=== PATIENT | male | born 1955 | race Caucasian/White ===

== ENCOUNTER 2021-03-08 09:08 | Inpatient (IN) | payer MEDICARE, OTHER ==
[2021-03-08 09:51] VITALS: BMI 19.0
[2021-03-08] MEDS ORDERED: MAGNESIUM CITRATE 300 ML BOTTLE PO PRN (10:24)
[2021-03-08] MEDS ORDERED: LORazepam 1 MG TABLET PO PRN (10:24)
[2021-03-08] MEDS ORDERED: NICOTINE POLACRILEX 2 MG GUM BUC PRN (10:24)
[2021-03-08] MEDS ORDERED: MENTHOL/PHENOL 1 EACH UD MM PRN (10:24)
[2021-03-08] MEDS ORDERED: BISMUTH SUBSALICYLATE 524 MG/30 ML PO PRN (10:24)
[2021-03-08] MEDS ORDERED: MAGNESIUM HYDROX 2400MG/30ML ORAL SUSPENSION 30 ML CUP PO PRN (10:24)
[2021-03-08] MEDS ORDERED: ONDANSETRON *ODT* 4 MG TABLET SL PRN (10:24)
[2021-03-08] MEDS ORDERED: ACETAMINOPHEN 325 MG TABLET (FP) PO PRN ×2 (10:24)
[2021-03-08] MEDS ORDERED: MAG HYDROX/AL HYDROX/SIMETH 30 ML UNIT-DOSE CUP PO PRN (10:24)
[2021-03-08] MEDS: NICOTINE 7 MG/24 HOURS TOPICAL PATCH TD SCH (13:09)
[2021-03-08] MEDS: hydrOXYzine PAMOATE 25 MG CAPSULE (FP) PO SCH ×3 (13:09→22:18)
[2021-03-08] MEDS: PRENATAL VITAMINS W/ FOLIC ACID TABLET (FP) PO SCH (13:10)
[2021-03-08 13:37] LABS: HEMATOCRIT 37.1 % (35.4-49); MCH 27.3 pg (25.7-33.7); MCHC 32.3 g/dl (32.0-35.9); MEAN CELL VOLUME 84.4 fl (80-96); MEAN PLT VOLUME 8.4 fl (7.5-11.1); PLATELET COUNT 266 K/MM3 (134-434); RBC 4.39 M/mm3 (4.00-5.60); RDW 15.5 % (11.9-15.9); WHITE BLOOD COUNT 13.1 K/mm3 (4.0-10.0)
[2021-03-08 13:44] LABS: CALCIUM 8.3 mg/dL (8.5-10.1)
[2021-03-08 13:46] LABS: ALBUMIN 3.3 g/dl (3.4-5.0); BLOOD UREA NITROGEN 25.7 mg/dL (7-18)
[2021-03-08 13:49] LABS: BILIRUBIN,TOTAL 0.8 mg/dL (0.2-1); CREATININE 0.7 mg/dL (0.55-1.3)
[2021-03-08] MEDS: ALBUTEROL SO4 HFA INHALER IH PRN (14:12)
[2021-03-08] MEDS: METHOCARBAMOL 500 MG TABLET PO PRN (15:03)
[2021-03-08] MEDS: LORazepam 2 MG TABLET PO SCH ×2 (17:33→22:18)
[2021-03-08] MEDS: IBUPROFEN 400 MG TABLET (FP) PO PRN (18:55)
[2021-03-08] MEDS: MELATONIN 5 MG TABLETS PO SCH (22:18)
[2021-03-08] MEDS: THIAMINE HCL 100 MG TABLET (FP) PO SCH (22:18)
[2021-03-09] MEDS ORDERED: METHADONE HCL 10 MG TABLET ONE ×2 (04:08→11:31)
[2021-03-09] MEDS ORDERED: METHADONE HCL 5 MG TABLET ONE ×2 (04:08→11:31)
[2021-03-09] MEDS ORDERED: METHADONE HCL 40 MG DISPERSABLE TABLET ONE ×2 (04:08→11:31)
[2021-03-09] MEDS ORDERED: METHADONE HCL 10 MG TABLET PO SCH (06:00)
[2021-03-09] MEDS: METHADONE 40 MG, METHADONE 30 MG, METHADONE 5 MG PO SCH (06:17)
[2021-03-09] MEDS: LORazepam 2 MG TABLET PO SCH ×4 (06:17→22:16)
[2021-03-09] MEDS: hydrOXYzine PAMOATE 25 MG CAPSULE (FP) PO SCH ×5 (06:17→22:17)
[2021-03-09] MEDS ORDERED: metFORMIN HCL 500 MG TABLET (FP) PO SCH (07:00)
[2021-03-09] MEDS: IBUPROFEN 400 MG TABLET (FP) PO PRN (08:35)
[2021-03-09] MEDS: PRENATAL VITAMINS W/ FOLIC ACID TABLET (FP) PO SCH (10:33)
[2021-03-09] MEDS: NICOTINE 7 MG/24 HOURS TOPICAL PATCH TD SCH (10:33)
[2021-03-09] MEDS: METHOCARBAMOL 500 MG TABLET PO PRN ×2 (10:34→22:17)
[2021-03-09] MEDS ORDERED: METHADONE HCL 10 MG TABLET PO ONE ×2 (10:57→11:12)
[2021-03-09] MEDS ORDERED: METHADONE 40 MG, METHADONE 30 MG, METHADONE 5 MG PO ONE ×2 (11:15)
[2021-03-09] MEDS: metFORMIN HCL 500 MG TABLET (FP) PO SCH (18:21)
[2021-03-09] MEDS: MELATONIN 5 MG TABLETS PO SCH (22:17)
[2021-03-09] MEDS: THIAMINE HCL 100 MG TABLET (FP) PO SCH (22:17)
[2021-03-10] MEDS ORDERED: METHADONE HCL 10 MG TABLET ONE (04:33)
[2021-03-10] MEDS ORDERED: METHADONE HCL 40 MG DISPERSABLE TABLET ONE (04:33)
[2021-03-10] MEDS ORDERED: METHADONE HCL 5 MG TABLET ONE (04:34)
[2021-03-10] MEDS: LORazepam 1 MG TABLET PO SCH ×4 (07:07→22:20)
[2021-03-10] MEDS: metFORMIN HCL 500 MG TABLET (FP) PO SCH ×2 (07:08→16:44)
[2021-03-10] MEDS: METHADONE 40 MG, METHADONE 30 MG, METHADONE 5 MG PO SCH (07:08)
[2021-03-10] MEDS: hydrOXYzine PAMOATE 25 MG CAPSULE (FP) PO SCH ×5 (07:08→22:20)
[2021-03-10] MEDS: PRENATAL VITAMINS W/ FOLIC ACID TABLET (FP) PO SCH (10:14)
[2021-03-10] MEDS: NICOTINE 7 MG/24 HOURS TOPICAL PATCH TD SCH (10:15)
[2021-03-10 17:17] LABS: BASO % 0.8 % (0-2.0); HEMATOCRIT 33.1 % (35.4-49); HEMOGLOBIN 10.9 GM/dL (11.7-16.9); LYMPH % 30.3 % (8-40); MCH 27.5 pg (25.7-33.7); MCHC 32.9 g/dl (32.0-35.9); MEAN CELL VOLUME 83.7 fl (80-96); MEAN PLT VOLUME 8.8 fl (7.5-11.1); MONO % 9.1 % (3.8-10.2); NEUT % 55.8 % (42.8-82.8); PLATELET COUNT 244 K/MM3 (134-434); RBC 3.96 M/mm3 (4.00-5.60); RDW 15.5 % (11.9-15.9); WHITE BLOOD COUNT 12.2 K/mm3 (4.0-10.0)
[2021-03-10 20:32] LABS: ANISOCYTOSIS 1+; MACROCYTOSIS 0; PLATELET ESTIMATE NORMAL
[2021-03-10] MEDS: MELATONIN 5 MG TABLETS PO SCH (22:19)
[2021-03-10] MEDS: THIAMINE HCL 100 MG TABLET (FP) PO SCH (22:19)
[2021-03-11] MEDS ORDERED: LORazepam 0.5 MG TABLET PO PRN
[2021-03-11] MEDS ORDERED: METHADONE HCL 5 MG TABLET ONE (04:37)
[2021-03-11] MEDS ORDERED: METHADONE HCL 40 MG DISPERSABLE TABLET ONE (04:37)
[2021-03-11] MEDS ORDERED: METHADONE HCL 10 MG TABLET ONE (04:37)
[2021-03-11] MEDS: METHADONE 40 MG, METHADONE 30 MG, METHADONE 5 MG PO SCH (05:57)
[2021-03-11] MEDS: hydrOXYzine PAMOATE 25 MG CAPSULE (FP) PO SCH ×5 (05:57→22:17)
[2021-03-11] MEDS: LORazepam 0.5 MG TABLET PO SCH ×4 (06:00→22:18)
[2021-03-11] MEDS: metFORMIN HCL 500 MG TABLET (FP) PO SCH ×2 (06:00→16:42)
[2021-03-11 06:08] LABS: SARS-CoV-2 NAA Not Detected (Not Detected)
[2021-03-11] MEDS ORDERED: COVID-19 VAC,AD26(JANSSEN)/PF 0.5 ML IM ONE (09:00)
[2021-03-11] MEDS: NICOTINE 7 MG/24 HOURS TOPICAL PATCH TD SCH (10:27)
[2021-03-11] MEDS: PRENATAL VITAMINS W/ FOLIC ACID TABLET (FP) PO SCH (10:27)
[2021-03-11] MEDS: THIAMINE HCL 100 MG TABLET (FP) PO SCH (22:17)
[2021-03-11] MEDS: MELATONIN 5 MG TABLETS PO SCH (22:17)
[2021-03-12] MEDS ORDERED: METHADONE HCL 40 MG DISPERSABLE TABLET ONE (04:30)
[2021-03-12] MEDS ORDERED: METHADONE HCL 10 MG TABLET ONE (04:30)
[2021-03-12] MEDS ORDERED: METHADONE HCL 5 MG TABLET ONE (04:31)
[2021-03-12] MEDS ORDERED: LORazepam 0.5 MG TABLET PO ONE (05:00)
[2021-03-12] MEDS: hydrOXYzine PAMOATE 25 MG CAPSULE (FP) PO SCH ×6 (05:22→22:50)
[2021-03-12] MEDS: METHADONE 40 MG, METHADONE 30 MG, METHADONE 5 MG PO SCH (05:22)
[2021-03-12] MEDS: metFORMIN HCL 500 MG TABLET (FP) PO SCH ×2 (07:20→18:29)
[2021-03-12] MEDS: NICOTINE 7 MG/24 HOURS TOPICAL PATCH TD SCH (11:02)
[2021-03-12] MEDS: PRENATAL VITAMINS W/ FOLIC ACID TABLET (FP) PO SCH (11:02)
[2021-03-12] MEDS: IBUPROFEN 400 MG TABLET (FP) PO PRN (11:07)
[2021-03-12] MEDS: MELATONIN 5 MG TABLETS PO SCH (22:50)
[2021-03-12] MEDS: ALBUTEROL SO4 HFA INHALER IH PRN (22:50)
[2021-03-12] MEDS: THIAMINE HCL 100 MG TABLET (FP) PO SCH (22:50)
[2021-03-13] MEDS ORDERED: METHADONE HCL 10 MG TABLET ONE (04:41)
[2021-03-13] MEDS ORDERED: METHADONE HCL 5 MG TABLET ONE (04:42)
[2021-03-13] MEDS ORDERED: METHADONE HCL 40 MG DISPERSABLE TABLET ONE (04:42)
[2021-03-13] MEDS: hydrOXYzine PAMOATE 25 MG CAPSULE (FP) PO SCH ×6 (05:29→22:04)
[2021-03-13] MEDS: METHADONE 40 MG, METHADONE 30 MG, METHADONE 5 MG PO SCH (05:30)
[2021-03-13] MEDS: metFORMIN HCL 500 MG TABLET (FP) PO SCH ×2 (08:23→17:37)
[2021-03-13] MEDS: PRENATAL VITAMINS W/ FOLIC ACID TABLET (FP) PO SCH (09:53)
[2021-03-13] MEDS: NICOTINE 7 MG/24 HOURS TOPICAL PATCH TD SCH (09:53)
[2021-03-13] MEDS: ALBUTEROL SO4 HFA INHALER IH PRN (09:54)
[2021-03-13] MEDS ORDERED: ALBUTEROL SO4 2.5/IPRATROPIUM 0.5 INH SOL 3 ML VIAL.NEB. NEB PRN (15:17)
[2021-03-13] MEDS: MELATONIN 5 MG TABLETS PO SCH (22:04)
[2021-03-13] MEDS: THIAMINE HCL 100 MG TABLET (FP) PO SCH (22:05)
[2021-03-14] MEDS ORDERED: METHADONE HCL 10 MG TABLET ONE (04:53)
[2021-03-14] MEDS ORDERED: METHADONE HCL 40 MG DISPERSABLE TABLET ONE (04:53)
[2021-03-14] MEDS ORDERED: METHADONE HCL 5 MG TABLET ONE (04:53)
[2021-03-14] MEDS: hydrOXYzine PAMOATE 25 MG CAPSULE (FP) PO SCH (05:27)
[2021-03-14] MEDS: METHADONE 40 MG, METHADONE 30 MG, METHADONE 5 MG PO SCH (05:28)
[2021-03-14] MEDS: metFORMIN HCL 500 MG TABLET (FP) PO SCH (06:55)
[2021-03-14 09:21] VITALS: BP 131/74; PULSE 90; TEMP 97.1
[2021-03-14] MEDS: ALBUTEROL SO4 HFA INHALER IH PRN (09:28)
== END 2021-03-14 09:45 | disposition home or self-care (01) | DRG 897 ==
LOC: YASAS 09:08 → Y3N 11:48
PROVIDERS: ADMIT Allergy & Immunology; ATTEND Allergy & Immunology
PROC: HZ2ZZZZ Detoxification Services for Substance Abuse Treatment (ICD-10-PCS; principal; 2021-03-08)
DX: F10.230 Alcohol dependence with withdrawal, uncomplicated (principal); F11.20 Opioid dependence, uncomplicated; F14.20 Cocaine dependence, uncomplicated; F17.210 Nicotine dependence, cigarettes, uncomplicated; D72.829 Elevated white blood cell count, unspecified; F32.9 Major depressive disorder, single episode, unspecified; E11.9 Type 2 diabetes mellitus without complications; Z79.84 Long term (current) use of oral hypoglycemic drugs; I10 Essential (primary) hypertension; M17.11 Unilateral primary osteoarthritis, right knee; H54.62 Unqualified visual loss, left eye, normal vision right eye; H40.9 Unspecified glaucoma; J44.9 Chronic obstructive pulmonary disease, unspecified; R79.89 Other specified abnormal findings of blood chemistry
CPT/HCPCS: 0031A; 36415; 71045-TC-FY; 80053; 82962; 85025; 85027; 86780; 91303; 93005; 93010; C9803; U0003; U0005

== ENCOUNTER 2022-03-06 16:19 | Inpatient (IN) | payer OTHER ==
[2022-03-06 17:28] VITALS: BMI 19.8
[2022-03-06] MEDS ORDERED: LORazepam 1 MG TABLET PO PRN (18:39)
[2022-03-06] MEDS ORDERED: MAGNESIUM HYDROX 2400MG/30ML ORAL SUSPENSION 30 ML CUP PO PRN (18:39)
[2022-03-06] MEDS ORDERED: DICYCLOMINE HCL 10 MG CAPSULE PO PRN (18:39)
[2022-03-06] MEDS ORDERED: NICOTINE 10 MG CARTRIDGE (INHALER) IH PRN (18:39)
[2022-03-06] MEDS ORDERED: ONDANSETRON *ODT* 4 MG TABLET SL PRN (18:39)
[2022-03-06] MEDS ORDERED: BISMUTH SUBSALICYLATE 524 MG/30 ML PO PRN (18:39)
[2022-03-06] MEDS ORDERED: BENZOCAINE/MENTHOL (CHLORASEPTIC ) LOZENGE MM PRN (18:39)
[2022-03-06] MEDS ORDERED: ACETAMINOPHEN 325 MG TABLET (FP) PO PRN ×2 (18:39)
[2022-03-06] MEDS ORDERED: LOPERAMIDE HCL 2 MG CAPSULE PO PRN (18:39)
[2022-03-06] MEDS ORDERED: LORazepam 2 MG TABLET PO ONE (18:39)
[2022-03-06] MEDS ORDERED: MAGNESIUM CITRATE 300 ML BOTTLE PO PRN (18:39)
[2022-03-06] MEDS ORDERED: MAG HYDROX/AL HYDROX/SIMETH 30 ML UNIT-DOSE CUP PO PRN (18:39)
[2022-03-06] MEDS ORDERED: ALBUTEROL SO4 HFA INHALER IH PRN (18:43)
[2022-03-06] MEDS ORDERED: ARTIFICIAL TEARS (POLYVINYL ALCOHOL) OPTH DROPS OU PRN (18:46)
[2022-03-06] MEDS: ATORVASTATIN CA 40 MG TABLET (FP) PO SCH (21:27)
[2022-03-06] MEDS: THIAMINE HCL 100 MG TABLET (FP) PO SCH (21:27)
[2022-03-06] MEDS: NICOTINE 14 MG/24 HOURS TOPICAL PATCH TD SCH (21:27)
[2022-03-06] MEDS: PANTOPRAZOLE 20 MG TABLET PO SCH (21:27)
[2022-03-06] MEDS: ASPIRIN 81 MG CHEWABLE TABLETS PO SCH (21:27)
[2022-03-06] MEDS: MELATONIN 5 MG TABLETS PO SCH (21:28)
[2022-03-06] MEDS: BUDESONIDE/FORMETEROL FUMARATE 80/4.5 mcg INHALER IH SCH (21:28)
[2022-03-06] MEDS: LORazepam 2 MG TABLET PO SCH (22:41)
[2022-03-06] MEDS: METHYL SALICYLATE/MENTHOL OINT 30 GM TUBE TP SCH (23:52)
[2022-03-07] MEDS: LORazepam 2 MG TABLET PO SCH ×4 (05:45→22:17)
[2022-03-07] MEDS ORDERED: methaDONE HCL 10 MG TABLET PO ONE (09:55)
[2022-03-07 10:05] LABS: HEMATOCRIT 30.7 % (35.4-49); HEMOGLOBIN 10.1 GM/dL (11.7-16.9); MCH 29.9 pg (25.7-33.7); MCHC 32.9 g/dl (32.0-35.9); MEAN CELL VOLUME 91.1 fl (80-96); MEAN PLT VOLUME 9.4 fl (7.5-11.1); PLATELET COUNT 139 10^3/uL (134-434); RBC 3.38 M/mm3 (4.00-5.60); RDW 16.8 % (11.9-15.9); WHITE BLOOD COUNT 7.9 K/mm3 (4.0-10.0)
[2022-03-07] MEDS: ASPIRIN 81 MG CHEWABLE TABLETS PO SCH (10:10)
[2022-03-07] MEDS: PRENATAL VITAMINS W/ FOLIC ACID TABLET (FP) PO SCH (10:10)
[2022-03-07] MEDS: PANTOPRAZOLE 20 MG TABLET PO SCH (10:10)
[2022-03-07] MEDS: BUDESONIDE/FORMETEROL FUMARATE 80/4.5 mcg INHALER IH SCH ×2 (10:11→22:17)
[2022-03-07] MEDS: NICOTINE 14 MG/24 HOURS TOPICAL PATCH TD SCH (10:11)
[2022-03-07] MEDS: METHYL SALICYLATE/MENTHOL OINT 30 GM TUBE TP SCH ×3 (10:12→22:17)
[2022-03-07 10:32] LABS: ALBUMIN 2.6 g/dl (3.4-5.0); BLOOD UREA NITROGEN 18.4 mg/dL (7-18); CALCIUM 8.1 mg/dL (8.5-10.1)
[2022-03-07 10:34] LABS: CREATININE 0.7 mg/dL (0.55-1.3)
[2022-03-07 10:35] LABS: BILIRUBIN,TOTAL 2.6 mg/dL (0.2-1); TOT PROT 5.9 g/dl (6.4-8.2)
[2022-03-07] MEDS ORDERED: methaDONE HCL 40 MG DISPERSABLE TABLET ONE (10:51)
[2022-03-07] MEDS ORDERED: methaDONE HCL 10 MG TABLET ONE (10:51)
[2022-03-07 14:09] LABS: SARS-CoV-2 NAA Not Detected (Not Detected)
[2022-03-07] MEDS: THIAMINE HCL 100 MG TABLET (FP) PO SCH (22:16)
[2022-03-07] MEDS: MELATONIN 5 MG TABLETS PO SCH (22:16)
[2022-03-07] MEDS: ATORVASTATIN CA 40 MG TABLET (FP) PO SCH (22:17)
[2022-03-08] MEDS ORDERED: methaDONE HCL 40 MG DISPERSABLE TABLET ONE (04:48)
[2022-03-08] MEDS ORDERED: methaDONE HCL 10 MG TABLET ONE (04:48)
[2022-03-08] MEDS ORDERED: LORazepam 1 MG TABLET PO SCH (05:00)
[2022-03-08] MEDS ORDERED: methaDONE HCL 10 MG TABLET PO SCH (06:00)
[2022-03-08] MEDS ORDERED: MAGNESIUM HYDROX 2400MG/30ML ORAL SUSPENSION 30 ML CUP PO ONE (10:00)
[2022-03-08 10:07] LABS: SARS-CoV-2 NAA Not Detected (Not Detected)
[2022-03-08] MEDS: ASPIRIN 81 MG CHEWABLE TABLETS PO SCH (10:31)
[2022-03-08] MEDS: METHYL SALICYLATE/MENTHOL OINT 30 GM TUBE TP SCH ×2 (10:31→22:28)
[2022-03-08] MEDS: PRENATAL VITAMINS W/ FOLIC ACID TABLET (FP) PO SCH (10:31)
[2022-03-08] MEDS: PANTOPRAZOLE 20 MG TABLET PO SCH (10:31)
[2022-03-08] MEDS: NICOTINE 14 MG/24 HOURS TOPICAL PATCH TD SCH (10:32)
[2022-03-08] MEDS: BUDESONIDE/FORMETEROL FUMARATE 80/4.5 mcg INHALER IH SCH ×2 (10:32→22:30)
[2022-03-08] MEDS: LORazepam 0.5 MG TABLET PO SCH ×3 (10:34→23:02)
[2022-03-08] MEDS: MELATONIN 5 MG TABLETS PO SCH (22:30)
[2022-03-08] MEDS: THIAMINE HCL 100 MG TABLET (FP) PO SCH (22:30)
[2022-03-09] MEDS ORDERED: LORazepam 0.5 MG TABLET PO PRN
[2022-03-09] MEDS ORDERED: methaDONE HCL 10 MG TABLET ONE (04:05)
[2022-03-09] MEDS ORDERED: methaDONE HCL 40 MG DISPERSABLE TABLET ONE (04:05)
[2022-03-09] MEDS: LORazepam 0.5 MG TABLET PO SCH ×4 (05:19→22:39)
[2022-03-09] MEDS: PANTOPRAZOLE 20 MG TABLET PO SCH (10:14)
[2022-03-09] MEDS: ASPIRIN 81 MG CHEWABLE TABLETS PO SCH (10:15)
[2022-03-09] MEDS: METHYL SALICYLATE/MENTHOL OINT 30 GM TUBE TP SCH ×2 (10:15→22:36)
[2022-03-09] MEDS: BUDESONIDE/FORMETEROL FUMARATE 80/4.5 mcg INHALER IH SCH ×2 (10:16→22:37)
[2022-03-09] MEDS: PRENATAL VITAMINS W/ FOLIC ACID TABLET (FP) PO SCH (10:16)
[2022-03-09] MEDS: NICOTINE 14 MG/24 HOURS TOPICAL PATCH TD SCH (10:16)
[2022-03-09] MEDS: MELATONIN 5 MG TABLETS PO SCH (22:37)
[2022-03-09] MEDS: THIAMINE HCL 100 MG TABLET (FP) PO SCH (22:37)
[2022-03-10] MEDS ORDERED: methaDONE HCL 10 MG TABLET ONE (04:43)
[2022-03-10] MEDS ORDERED: methaDONE HCL 40 MG DISPERSABLE TABLET ONE (04:44)
[2022-03-10] MEDS ORDERED: LORazepam 0.5 MG TABLET PO ONE (05:00)
[2022-03-10] MEDS: BUDESONIDE/FORMETEROL FUMARATE 80/4.5 mcg INHALER IH SCH (10:24)
[2022-03-10] MEDS: ASPIRIN 81 MG CHEWABLE TABLETS PO SCH (10:24)
[2022-03-10] MEDS: PRENATAL VITAMINS W/ FOLIC ACID TABLET (FP) PO SCH (10:25)
[2022-03-10] MEDS: PANTOPRAZOLE 20 MG TABLET PO SCH (10:25)
[2022-03-10] MEDS: METHYL SALICYLATE/MENTHOL OINT 30 GM TUBE TP SCH (11:14)
[2022-03-10] MEDS: NICOTINE 14 MG/24 HOURS TOPICAL PATCH TD SCH (11:14)
[2022-03-10 12:25] VITALS: BP 137/77; PULSE 97; TEMP 97.9
== END 2022-03-10 12:20 | disposition home or self-care (01) | DRG 897 ==
LOC: YASAS 16:19 → Y6N 20:02
PROVIDERS: ADMIT Allergy & Immunology; ATTEND Surgery
PROC: HZ2ZZZZ Detoxification Services for Substance Abuse Treatment (ICD-10-PCS; principal; 2022-03-06)
DX: F10.230 Alcohol dependence with withdrawal, uncomplicated (principal); F11.20 Opioid dependence, uncomplicated; F14.10 Cocaine abuse, uncomplicated; F17.210 Nicotine dependence, cigarettes, uncomplicated; I25.118 Atherosclerotic heart disease of native coronary artery with other forms of angina pectoris; I10 Essential (primary) hypertension; E11.9 Type 2 diabetes mellitus without complications; H54.62 Unqualified visual loss, left eye, normal vision right eye; M17.11 Unilateral primary osteoarthritis, right knee; R74.01 Elevation of levels of liver transaminase levels; Z99.89 Dependence on other enabling machines and devices
CPT/HCPCS: 36415; 80053; 82962; 85027; 86780; 93005; 93010; C9803-CS; U0003; U0005

== ENCOUNTER 2023-06-11 14:07 | Inpatient (IN) | payer OTHER ==
[2023-06-11] MEDS ORDERED: diazePAM 5 MG TABLET PO PRN (18:33)
[2023-06-11] MEDS ORDERED: IBUPROFEN 400 MG TABLET (FP) PO PRN (18:35)
[2023-06-11] MEDS ORDERED: NALOXONE HCL (KLOXXADO) 8 MG SPRAY NS PRN (18:35)
[2023-06-11] MEDS ORDERED: BENZOCAINE/MENTHOL (CHLORASEPTIC ) LOZENGE MM PRN (18:35)
[2023-06-11] MEDS ORDERED: BENZONATATE 200 MG CAPSULE PO PRN (18:35)
[2023-06-11] MEDS ORDERED: LOPERAMIDE HCL 2 MG CAPSULE PO PRN (18:35)
[2023-06-11] MEDS ORDERED: NALOXONE HCL 0.4 MG/ML VIAL IM PRN (18:35)
[2023-06-11] MEDS ORDERED: BISMUTH SUBSALICYLATE 524 MG/30 ML PO PRN (18:35)
[2023-06-11] MEDS ORDERED: MAGNESIUM HYDROX 2400MG/30ML ORAL SUSPENSION 30 ML CUP PO PRN (18:35)
[2023-06-11] MEDS ORDERED: NICOTINE POLACRILEX 2 MG GUM BUC PRN (18:35)
[2023-06-11] MEDS ORDERED: guaiFENesin 600 MG TABLET.ER (FP) PO PRN (18:35)
[2023-06-11] MEDS ORDERED: MAG HYDROX/AL HYDROX/SIMETH 30 ML UNIT-DOSE CUP PO PRN (18:35)
[2023-06-11] MEDS ORDERED: P-EPHED 60MG/TRIPROLIDI 2.5MG TABLET PO PRN (18:35)
[2023-06-11] MEDS ORDERED: POLYETHYLENE GLYCOL (HEALTHYLAX) 3350 17 GM PACKET PO PRN (18:35)
[2023-06-11] MEDS ORDERED: METOPROLOL TARTRATE 25 MG TABLET (FP) PO ONE (19:00)
[2023-06-11] MEDS ORDERED: METOPROLOL TARTRATE 25 MG TABLET (FP) ONE (19:18)
[2023-06-11] MEDS ORDERED: IBUPROFEN 600 MG TABLET (FP) PO ONE (19:18)
[2023-06-11] MEDS ORDERED: ASPIRIN 81 MG CHEWABLE TABLETS ONE (19:18)
[2023-06-11] MEDS: ASPIRIN 81 MG CHEWABLE TABLETS PO SCH (19:20)
[2023-06-11] MEDS: IBUPROFEN 600 MG TABLET (FP) PO PRN (19:20)
[2023-06-11] MEDS ORDERED: SENNOSIDES 8.6MG TABLET (FP) PO PRN (20:15)
[2023-06-11] MEDS: MOMETASONE FUROATE 220 MCG/IH INHALER IH SCH (22:07)
[2023-06-11] MEDS: diazePAM 5 MG TABLET PO SCH (22:08)
[2023-06-11] MEDS: MELATONIN 5 MG TABLETS PO SCH (22:08)
[2023-06-11] MEDS: THIAMINE HCL 100 MG TABLET (FP) PO SCH (22:08)
[2023-06-11] MEDS: ATORVASTATIN CA 40 MG TABLET (FP) PO SCH (22:08)
[2023-06-12] MEDS: diazePAM 5 MG TABLET PO SCH ×4 (05:36→22:08)
[2023-06-12] MEDS ORDERED: methaDONE HCL 40 MG DISPERSABLE TABLET PO SCH (09:30)
[2023-06-12] MEDS: PRENATAL VITAMINS W/ FOLIC ACID TABLET (FP) PO SCH (09:56)
[2023-06-12] MEDS: metoPROLOL SUCCINATE 25 MG TAB.SR.24H (FP) PO SCH (09:56)
[2023-06-12] MEDS: FOLIC ACID 1 MG TABLET (FP) PO SCH (09:56)
[2023-06-12] MEDS: ASPIRIN 81 MG CHEWABLE TABLETS PO SCH (09:56)
[2023-06-12] MEDS: ALBUTEROL SO4 HFA INHALER IH PRN ×2 (10:27→17:28)
[2023-06-12 10:42] LABS: HEMATOCRIT 29.5 % (35.4-49); HEMOGLOBIN 9.2 GM/dL (11.7-16.9); MCH 29.2 pg (25.7-33.7); MCHC 31.1 g/dl (32.0-35.9); MEAN CELL VOLUME 93.8 fl (80-96); MEAN PLT VOLUME 9.3 fl (7.5-11.1); PLATELET COUNT 148 10^3/uL (134-434); RBC 3.15 M/mm3 (4.00-5.60); RDW 15.8 % (11.9-15.9); WHITE BLOOD COUNT 7.7 K/mm3 (4.0-10.0)
[2023-06-12 10:48] LABS: POTASSIUM 3.5 mmol/L (3.5-5.1)
[2023-06-12 10:50] LABS: CALCIUM 8.5 mg/dL (8.5-10.1)
[2023-06-12 10:51] LABS: ALBUMIN 2.9 g/dl (3.4-5.0); BLOOD UREA NITROGEN 17.8 mg/dL (7-18)
[2023-06-12 10:54] LABS: CREATININE 0.9 mg/dL (0.55-1.3)
[2023-06-12 10:55] LABS: BILIRUBIN,TOTAL 2.2 mg/dL (0.2-1)
[2023-06-12] MEDS: IBUPROFEN 600 MG TABLET (FP) PO PRN (17:25)
[2023-06-12] MEDS: MOMETASONE FUROATE 220 MCG/IH INHALER IH SCH (22:07)
[2023-06-12] MEDS: THIAMINE HCL 100 MG TABLET (FP) PO SCH (22:08)
[2023-06-12] MEDS: ATORVASTATIN CA 40 MG TABLET (FP) PO SCH (22:08)
[2023-06-12] MEDS: MELATONIN 5 MG TABLETS PO SCH (22:08)
[2023-06-13] MEDS: diazePAM 5 MG TABLET PO SCH ×3 (05:40→22:10)
[2023-06-13] MEDS: IBUPROFEN 600 MG TABLET (FP) PO PRN ×2 (09:24→17:26)
[2023-06-13] MEDS: ASPIRIN 81 MG CHEWABLE TABLETS PO SCH (10:11)
[2023-06-13] MEDS: FOLIC ACID 1 MG TABLET (FP) PO SCH (10:11)
[2023-06-13] MEDS: PRENATAL VITAMINS W/ FOLIC ACID TABLET (FP) PO SCH (10:12)
[2023-06-13] MEDS: metoPROLOL SUCCINATE 25 MG TAB.SR.24H (FP) PO SCH (10:12)
[2023-06-13 14:12] LABS: POTASSIUM 3.8 mmol/L (3.5-5.1)
[2023-06-13 14:58] LABS: BLOOD UREA NITROGEN 13.4 mg/dL (7-18); CALCIUM 8.4 mg/dL (8.5-10.1)
[2023-06-13 15:02] LABS: BILIRUBIN,TOTAL 1.6 mg/dL (0.2-1); CREATININE 0.7 mg/dL (0.55-1.3); TOT PROT 6.8 g/dl (6.4-8.2)
[2023-06-13] MEDS: THIAMINE HCL 100 MG TABLET (FP) PO SCH (22:10)
[2023-06-13] MEDS: ATORVASTATIN CA 40 MG TABLET (FP) PO SCH (22:10)
[2023-06-13] MEDS: MELATONIN 5 MG TABLETS PO SCH (22:10)
[2023-06-13] MEDS: MOMETASONE FUROATE 220 MCG/IH INHALER IH SCH (22:10)
[2023-06-13] MEDS: AMMONIUM LACTATE 12% LOTION 225 GM BOTTLE TP SCH (23:00)
[2023-06-14] MEDS: diazePAM 5 MG TABLET PO SCH ×2 (05:56→17:28)
[2023-06-14] MEDS: IBUPROFEN 600 MG TABLET (FP) PO PRN ×2 (05:58→17:24)
[2023-06-14] MEDS: ALBUTEROL SO4 HFA INHALER IH PRN (06:05)
[2023-06-14] MEDS: PRENATAL VITAMINS W/ FOLIC ACID TABLET (FP) PO SCH (10:15)
[2023-06-14] MEDS: FOLIC ACID 1 MG TABLET (FP) PO SCH (10:15)
[2023-06-14] MEDS: AMMONIUM LACTATE 12% LOTION 225 GM BOTTLE TP SCH ×2 (10:15→22:20)
[2023-06-14] MEDS: ASPIRIN 81 MG CHEWABLE TABLETS PO SCH (10:16)
[2023-06-14] MEDS: metoPROLOL SUCCINATE 25 MG TAB.SR.24H (FP) PO SCH (10:16)
[2023-06-14] MEDS: ACETAMINOPHEN 325 MG TABLET (FP) PO PRN (18:38)
[2023-06-14] MEDS: MOMETASONE FUROATE 220 MCG/IH INHALER IH SCH (22:18)
[2023-06-14] MEDS: ATORVASTATIN CA 40 MG TABLET (FP) PO SCH (22:18)
[2023-06-14] MEDS: FERROUS SO4 325 MG TABLET (FP) PO SCH (22:19)
[2023-06-14] MEDS: THIAMINE HCL 100 MG TABLET (FP) PO SCH (22:19)
[2023-06-14] MEDS: MELATONIN 5 MG TABLETS PO SCH (22:19)
[2023-06-15] MEDS ORDERED: diazePAM 5 MG TABLET PO ONE (06:00)
[2023-06-15] MEDS: ACETAMINOPHEN 325 MG TABLET (FP) PO PRN (06:14)
[2023-06-15] MEDS: ASPIRIN 81 MG CHEWABLE TABLETS PO SCH (09:52)
[2023-06-15] MEDS: FOLIC ACID 1 MG TABLET (FP) PO SCH (09:52)
[2023-06-15] MEDS: PRENATAL VITAMINS W/ FOLIC ACID TABLET (FP) PO SCH (09:52)
[2023-06-15] MEDS: FERROUS SO4 325 MG TABLET (FP) PO SCH ×2 (09:52→22:41)
[2023-06-15] MEDS: metoPROLOL SUCCINATE 25 MG TAB.SR.24H (FP) PO SCH (09:53)
[2023-06-15] MEDS: AMMONIUM LACTATE 12% LOTION 225 GM BOTTLE TP SCH ×2 (09:53→22:42)
[2023-06-15 11:12] LABS: PH,URINE 6.5 (5.0-8.0); URINE APPEARANCE CLEAR; URINE BILIRUBIN NEGATIVE (NEGATIVE); URINE COLOR DK YELLOW; URINE GLUCOSE (UA) NEGATIVE (NEGATIVE); URINE KETONE NEGATIVE (NEGATIVE); URINE LEUK ESTERASE NEGATIVE (NEGATIVE); URINE NITRITE NEGATIVE (NEGATIVE); URINE PROTEIN NEGATIVE (NEGATIVE)
[2023-06-15] MEDS: NITROFURANTOIN MACROCRYSTAL 50 MG CAPSULE (FP) PO SCH ×3 (11:29→23:01)
[2023-06-15] MEDS: MOMETASONE FUROATE 220 MCG/IH INHALER IH SCH (22:41)
[2023-06-15] MEDS: ATORVASTATIN CA 40 MG TABLET (FP) PO SCH (22:41)
[2023-06-15] MEDS: THIAMINE HCL 100 MG TABLET (FP) PO SCH (22:41)
[2023-06-15] MEDS: MELATONIN 5 MG TABLETS PO SCH (22:41)
[2023-06-15] MEDS: IBUPROFEN 600 MG TABLET (FP) PO PRN (22:48)
[2023-06-16] MEDS: NITROFURANTOIN MACROCRYSTAL 50 MG CAPSULE (FP) PO SCH (06:02)
[2023-06-16 06:19] VITALS: RESP 18
[2023-06-16 09:44] VITALS: BP 137/81; PULSE 86; TEMP 97.8
== END 2023-06-16 09:36 | disposition home or self-care (01) | DRG 897 ==
LOC: YASAS 14:07 → Y3N 18:47
PROVIDERS: ADMIT Allergy & Immunology; ATTEND Surgery
PROC: HZ2ZZZZ Detoxification Services for Substance Abuse Treatment (ICD-10-PCS; principal; 2023-06-11)
DX: F10.230 Alcohol dependence with withdrawal, uncomplicated (principal); F11.20 Opioid dependence, uncomplicated; F17.210 Nicotine dependence, cigarettes, uncomplicated; F10.24 Alcohol dependence with alcohol-induced mood disorder; D64.9 Anemia, unspecified; I10 Essential (primary) hypertension; M17.11 Unilateral primary osteoarthritis, right knee; M15.9 Polyosteoarthritis, unspecified; R50.9 Fever, unspecified; R30.0 Dysuria; Z99.89 Dependence on other enabling machines and devices; Z88.5 Allergy status to narcotic agent
CPT/HCPCS: 36415; 71045-TC-FY; 80053; 81003; 83036; 85027; 86780; 87635; 87811

== ENCOUNTER 2023-10-18 10:24 | Inpatient (IN) | payer OTHER ==
[2023-10-18 10:52] VITALS: BMI 19.8
[2023-10-18] MEDS ORDERED: LOPERAMIDE HCL 2 MG CAPSULE PO PRN (11:52)
[2023-10-18] MEDS ORDERED: guaiFENesin 600 MG TABLET.ER (FP) PO PRN (11:52)
[2023-10-18] MEDS ORDERED: POLYETHYLENE GLYCOL (HEALTHYLAX) 3350 17 GM PACKET PO PRN (11:52)
[2023-10-18] MEDS ORDERED: MAG HYDROX/AL HYDROX/SIMETH 30 ML UNIT-DOSE CUP PO PRN (11:52)
[2023-10-18] MEDS ORDERED: DICYCLOMINE HCL 10 MG CAPSULE PO PRN (11:52)
[2023-10-18] MEDS ORDERED: hydrOXYzine PAMOATE 25 MG CAPSULE (FP) PO PRN (11:52)
[2023-10-18] MEDS ORDERED: IBUPROFEN 400 MG TABLET (FP) PO PRN (11:52)
[2023-10-18] MEDS ORDERED: BISMUTH SUBSALICYLATE 262 MG/15 ML BTL PO PRN (11:52)
[2023-10-18] MEDS ORDERED: ONDANSETRON *ODT* 4 MG TABLET SL PRN (11:52)
[2023-10-18] MEDS ORDERED: BENZONATATE 200 MG CAPSULE PO PRN (11:52)
[2023-10-18] MEDS ORDERED: MAGNESIUM HYDROX 2400MG/30ML ORAL SUSPENSION 30 ML CUP PO PRN (11:52)
[2023-10-18] MEDS ORDERED: METHOCARBAMOL 500 MG TABLET PO PRN (11:52)
[2023-10-18] MEDS ORDERED: NALOXONE HCL 0.4 MG/ML VIAL IM PRN (11:52)
[2023-10-18] MEDS ORDERED: IBUPROFEN 600 MG TABLET (FP) PO PRN (11:52)
[2023-10-18] MEDS ORDERED: NALOXONE HCL (KLOXXADO) 8 MG SPRAY NS PRN (11:52)
[2023-10-18] MEDS ORDERED: LORazepam 1 MG TABLET PO PRN (11:52)
[2023-10-18] MEDS ORDERED: BENZOCAINE/MENTHOL (CHLORASEPTIC ) LOZENGE MM PRN (11:52)
[2023-10-18] MEDS ORDERED: NICOTINE POLACRILEX 2 MG GUM BUC PRN (11:52)
[2023-10-18] MEDS ORDERED: ACETAMINOPHEN 325 MG TABLET (FP) PO PRN (11:52)
[2023-10-18] MEDS ORDERED: PRENATAL VITAMINS W/ FOLIC ACID TABLET (FP) PO ONE (12:18)
[2023-10-18] MEDS: PRENATAL VITAMINS W/ FOLIC ACID TABLET (FP) PO SCH (12:20)
[2023-10-18] MEDS: LORazepam 2 MG TABLET PO SCH ×2 (17:55→22:22)
[2023-10-18] MEDS: MELATONIN 5 MG TABLETS PO SCH (22:19)
[2023-10-18] MEDS: THIAMINE HCL 100 MG TABLET (FP) PO SCH (22:19)
[2023-10-18] MEDS: ALBUTEROL SO4 HFA INHALER IH PRN (22:19)
[2023-10-19] MEDS: LORazepam 2 MG TABLET PO SCH ×4 (05:51→22:32)
[2023-10-19] MEDS: NICOTINE 14 MG/24 HOURS TOPICAL PATCH TD SCH (10:12)
[2023-10-19] MEDS: PRENATAL VITAMINS W/ FOLIC ACID TABLET (FP) PO SCH (10:12)
[2023-10-19 10:43] LABS: HEMATOCRIT 31.7 % (35.4-49); MCH 26.7 pg (25.7-33.7); MCHC 31.4 g/dl (32.0-35.9); MEAN CELL VOLUME 85.1 fl (80-96); MEAN PLT VOLUME 9.8 fl (7.5-11.1); PLATELET COUNT 193 10^3/uL (134-434); RBC 3.73 M/mm3 (4.00-5.60); RDW 18.6 % (11.9-15.9); WHITE BLOOD COUNT 7.3 K/mm3 (4.0-10.0)
[2023-10-19] MEDS ORDERED: methaDONE HCL 40 MG DISPERSABLE TABLET PO SCH (11:00)
[2023-10-19 11:35] LABS: POTASSIUM 3.8 mmol/L (3.5-5.1)
[2023-10-19 11:40] LABS: ALBUMIN 3.2 g/dl (3.4-5.0); BLOOD UREA NITROGEN 13.2 mg/dL (7-18)
[2023-10-19 11:42] LABS: CALCIUM 8.9 mg/dL (8.5-10.1)
[2023-10-19 11:44] LABS: CREATININE 0.7 mg/dL (0.55-1.3)
[2023-10-19 11:45] LABS: BILIRUBIN,TOTAL 1.6 mg/dL (0.2-1); TOT PROT 8.2 g/dl (6.4-8.2)
[2023-10-19] MEDS ORDERED: FLU VACCINE (FLULAVAL) PF 60 MCG/0.5 ML SYRINGE 2023-2024 IM ONE (12:00)
[2023-10-19] MEDS: LACTULOSE 20 GM/30 ML UDC (FOR ORAL USE ONLY) PO SCH ×2 (18:07→22:31)
[2023-10-19] MEDS: THIAMINE HCL 100 MG TABLET (FP) PO SCH (22:31)
[2023-10-19] MEDS: MELATONIN 5 MG TABLETS PO SCH (22:31)
[2023-10-19] MEDS: ALBUTEROL SO4 HFA INHALER IH PRN (22:31)
[2023-10-20] MEDS: LORazepam 1 MG TABLET PO SCH ×4 (05:46→23:13)
[2023-10-20] MEDS: PRENATAL VITAMINS W/ FOLIC ACID TABLET (FP) PO SCH (10:01)
[2023-10-20] MEDS: LACTULOSE 20 GM/30 ML UDC (FOR ORAL USE ONLY) PO SCH ×4 (10:02→23:09)
[2023-10-20] MEDS: NICOTINE 14 MG/24 HOURS TOPICAL PATCH TD SCH (10:03)
[2023-10-20] MEDS: THIAMINE HCL 100 MG TABLET (FP) PO SCH (23:10)
[2023-10-20] MEDS: MELATONIN 5 MG TABLETS PO SCH (23:10)
[2023-10-21] MEDS ORDERED: LORazepam 0.5 MG TABLET PO PRN
[2023-10-21] MEDS: LORazepam 0.5 MG TABLET PO SCH ×4 (05:58→22:51)
[2023-10-21] MEDS: LACTULOSE 20 GM/30 ML UDC (FOR ORAL USE ONLY) PO SCH ×5 (10:40→22:50)
[2023-10-21] MEDS: PRENATAL VITAMINS W/ FOLIC ACID TABLET (FP) PO SCH (10:40)
[2023-10-21] MEDS: NICOTINE 14 MG/24 HOURS TOPICAL PATCH TD SCH (10:42)
[2023-10-21 13:11] VITALS: RESP 18
[2023-10-21] MEDS ORDERED: MOMETASONE FUROATE 110 MCG/IH INHALER IH SCH (22:00)
[2023-10-21] MEDS: MELATONIN 5 MG TABLETS PO SCH (22:49)
[2023-10-21] MEDS: THIAMINE HCL 100 MG TABLET (FP) PO SCH (22:50)
[2023-10-22] MEDS ORDERED: LORazepam 0.5 MG TABLET PO ONE (05:00)
[2023-10-22] MEDS ORDERED: FERROUS SO4 325 MG TABLET (FP) PO SCH (08:00)
[2023-10-22 09:41] VITALS: BP 114/65; PULSE 90; TEMP 99.5
[2023-10-22] MEDS: LACTULOSE 20 GM/30 ML UDC (FOR ORAL USE ONLY) PO SCH (10:20)
[2023-10-22] MEDS: PRENATAL VITAMINS W/ FOLIC ACID TABLET (FP) PO SCH (10:20)
[2023-10-22] MEDS: NICOTINE 14 MG/24 HOURS TOPICAL PATCH TD SCH (10:21)
== END 2023-10-22 12:30 | disposition home or self-care (01) | DRG 897 ==
LOC: YASAS 10:24 → Y6N 12:25
PROVIDERS: ADMIT Allergy & Immunology; ATTEND Surgery
PROC: HZ2ZZZZ Detoxification Services for Substance Abuse Treatment (ICD-10-PCS; principal; 2023-10-18)
DX: F10.230 Alcohol dependence with withdrawal, uncomplicated (principal); F11.20 Opioid dependence, uncomplicated; F14.20 Cocaine dependence, uncomplicated; F19.282 Other psychoactive substance dependence with psychoactive substance-induced sleep disorder; F19.280 Other psychoactive substance dependence with psychoactive substance-induced anxiety disorder; E72.20 Disorder of urea cycle metabolism, unspecified; F17.213 Nicotine dependence, cigarettes, with withdrawal; F19.24 Other psychoactive substance dependence with psychoactive substance-induced mood disorder; I25.118 Atherosclerotic heart disease of native coronary artery with other forms of angina pectoris; I10 Essential (primary) hypertension; E11.9 Type 2 diabetes mellitus without complications; E78.5 Hyperlipidemia, unspecified; J43.0 Unilateral pulmonary emphysema [MacLeod's syndrome]; K21.9 Gastro-esophageal reflux disease without esophagitis; M15.9 Polyosteoarthritis, unspecified; Z86.19 Personal history of other infectious and parasitic diseases; Z86.11 Personal history of tuberculosis; Z99.89 Dependence on other enabling machines and devices
CPT/HCPCS: 36415; 80053; 80307; 82140; 85027; 86780; 87635; 90686; G0008

== ENCOUNTER 2024-07-27 15:19 | Inpatient (IN) | payer OTHER ==
[2024-07-27 15:41] VITALS: BP 151/91; PULSE 122; RESP 16; TEMP 97.6
[2024-07-27] MEDS ORDERED: diazePAM 5 MG TABLET PO PRN (19:18)
[2024-07-27] MEDS ORDERED: ACETAMINOPHEN 325 MG TABLET (FP) PO PRN (19:26)
[2024-07-27] MEDS ORDERED: BENZONATATE 200 MG CAPSULE PO PRN (19:26)
[2024-07-27] MEDS ORDERED: LOPERAMIDE HCL 2 MG CAPSULE PO PRN (19:26)
[2024-07-27] MEDS ORDERED: NALOXONE (NYS OPIOID OVERDOSE PROGRAM) 4 MG/0.1 ML SPRAY NS ONE (19:26)
[2024-07-27] MEDS ORDERED: IBUPROFEN 600 MG TABLET (FP) PO PRN (19:26)
[2024-07-27] MEDS ORDERED: NALOXONE (NARCAN) HCL 4 MG/0.1 ML SPRAY NS PRN (19:26)
[2024-07-27] MEDS ORDERED: guaiFENesin 600 MG TABLET.ER (FP) PO PRN (19:26)
[2024-07-27] MEDS ORDERED: MAG HYDROX/AL HYDROX/SIMETH 30 ML UNIT-DOSE CUP PO PRN (19:26)
[2024-07-27] MEDS ORDERED: ONDANSETRON *ODT* 4 MG TABLET SL PRN (19:26)
[2024-07-27] MEDS ORDERED: hydrOXYzine PAMOATE 25 MG CAPSULE (FP) PO PRN (19:26)
[2024-07-27] MEDS ORDERED: METHOCARBAMOL 500 MG TABLET PO PRN (19:26)
[2024-07-27] MEDS ORDERED: DICYCLOMINE HCL 10 MG CAPSULE PO PRN (19:26)
[2024-07-27] MEDS ORDERED: BENZOCAINE/MENTHOL (CHLORASEPTIC ) LOZENGE MM PRN (19:26)
[2024-07-27] MEDS ORDERED: IBUPROFEN 400 MG TABLET (FP) PO PRN (19:26)
[2024-07-27] MEDS ORDERED: POLYETHYLENE GLYCOL (HEALTHYLAX) 3350 17 GM PACKET PO PRN (19:26)
[2024-07-27] MEDS ORDERED: BISMUTH SUBSALICYLATE 524 MG/30 ML PO PRN (19:26)
[2024-07-27] MEDS ORDERED: MAGNESIUM HYDROX 2400MG/30ML ORAL SUSPENSION 30 ML CUP PO PRN (19:26)
[2024-07-27] MEDS ORDERED: methaDONE HCL 10 MG TABLET (FOR DETOX USE ONLY) ONE (20:04)
[2024-07-27] MEDS: methaDONE 40 MG, methaDONE 30 MG PO ONE (20:10)
[2024-07-27] MEDS ORDERED: MELATONIN 5 MG TABLETS PO SCH (22:00)
[2024-07-27] MEDS ORDERED: THIAMINE 100 MG TABLET PO SCH (22:00)
[2024-07-27] MEDS ORDERED: diazePAM 5 MG TABLET PO SCH (23:00)
[2024-07-28] MEDS ORDERED: PRENATAL VITAMINS W/ FOLIC ACID TABLET (FP) PO SCH (10:00)
[2024-07-29] MEDS ORDERED: diazePAM 5 MG TABLET PO SCH (06:00)
[2024-07-30] MEDS ORDERED: diazePAM 5 MG TABLET PO SCH (06:00)
[2024-07-31] MEDS ORDERED: diazePAM 5 MG TABLET PO ONE (06:00)
== END 2024-07-28 02:44 | disposition short-term general hospital (02) | DRG 897 ==
LOC: YASAS 15:19 → Y6N 19:27
PROVIDERS: ADMIT Surgery; ATTEND Surgery
PROC: HZ2ZZZZ Detoxification Services for Substance Abuse Treatment (ICD-10-PCS; principal; 2024-07-27)
DX: F10.230 Alcohol dependence with withdrawal, uncomplicated (principal); F11.20 Opioid dependence, uncomplicated; F14.10 Cocaine abuse, uncomplicated; F17.210 Nicotine dependence, cigarettes, uncomplicated; F32.A Depression, unspecified; I10 Essential (primary) hypertension; E11.9 Type 2 diabetes mellitus without complications; H54.62 Unqualified visual loss, left eye, normal vision right eye; K21.9 Gastro-esophageal reflux disease without esophagitis; M15.9 Polyosteoarthritis, unspecified; R76.11 Nonspecific reaction to tuberculin skin test without active tuberculosis; Z99.89 Dependence on other enabling machines and devices
CPT/HCPCS: 80305; 80307; 93005; 93010

== ENCOUNTER 2024-07-27 21:26 | Inpatient (IN) | payer OTHER ==
[2024-07-27 21:50] VITALS: BMI 20.8
[2024-07-27] MEDS ORDERED: PANTOPRAZOLE SODIUM 40 MG VIAL ONE (22:19)
[2024-07-27] MEDS: FAMOTIDINE 20 MG/50 ML IVPB 20 MG/50 ML MG IVPB ONE (22:49)
[2024-07-27] MEDS: SODIUM CHLORIDE 0.9% 500 ML INFUS.BAG IV ONE (22:49)
[2024-07-27] MEDS: PANTOPRAZOLE SODIUM 40 MG VIAL IVPUSH ONE (22:49)
[2024-07-27 23:02] LABS: BASO % 0.7 % (0-2.0); HEMATOCRIT 35.9 % (35.4-49); HEMOGLOBIN 11.6 GM/dL (11.7-16.9); LYMPH % 12.2 % (8-40); MCHC 32.4 g/dl (32.0-35.9); MEAN CELL VOLUME 89.4 fl (80-96); MONO % 7.4 % (3.8-10.2); NEUT % 79.7 % (42.8-82.8); PLATELET COUNT 185 10^3/uL (134-434); RBC 4.02 M/mm3 (4.00-5.60); WHITE BLOOD COUNT 11.6 K/mm3 (4.0-10.0)
[2024-07-27 23:02] LABS: URINE APPEARANCE CLEAR; URINE BILIRUBIN NEGATIVE (NEGATIVE); URINE COLOR YELLOW; URINE GLUCOSE (UA) NEGATIVE (NEGATIVE); URINE KETONE NEGATIVE (NEGATIVE); URINE LEUK ESTERASE NEGATIVE (NEGATIVE); URINE NITRITE NEGATIVE (NEGATIVE); URINE PROTEIN NEGATIVE (NEGATIVE)
[2024-07-27 23:10] LABS: COCAINE, UR NEGATIVE (NEGATIVE); OPIATES, URI NEGATIVE (NEGATIVE); URINE BARBITURATES NEGATIVE (NEGATIVE); URINE BENZODIAZEPINES NEGATIVE (NEGATIVE)
[2024-07-27 23:11] LABS: PHENCYCLIDINE,URINE NEGATIVE (NEGATIVE)
[2024-07-27 23:12] LABS: METHADONE, UR POSITIVE (NEGATIVE); URINE AMPHETAMINES NEGATIVE (NEGATIVE)
[2024-07-27 23:18] LABS: CHLORIDE 98 mmol/L (98-107); POTASSIUM 3.9 mmol/L (3.5-5.1); SODIUM 135 mmol/L (136-145)
[2024-07-27 23:20] LABS: ALBUMIN 3.3 g/dl (3.4-5.0); CALCIUM 8.8 mg/dL (8.5-10.1)
[2024-07-27 23:21] LABS: ANION GAP 10 mmol/L (4-13); BLOOD UREA NITROGEN 16.1 mg/dL (7-18); CO2 27 mmol/L (21-32); GLUCOSE,RANDOM 122 mg/dL (74-106)
[2024-07-27 23:23] LABS: CREATININE 0.7 mg/dL (0.55-1.3); SGOT/AST 86 U/L (15-37); SGPT/ALT 43 U/L (13-61)
[2024-07-27 23:24] LABS: PHOSPHOROUS 2.7 mg/dL (2.5-4.9)
[2024-07-27 23:25] LABS: BILIRUBIN,TOTAL 3.5 mg/dL (0.2-1); INR 1.2 (0.83-1.09); PROTHROMBIN TIME (PATIENT) 13.7 SEC (9.7-13.0); TOT PROT 7.5 g/dl (6.4-8.2)
[2024-07-27 23:26] LABS: ALK PHOS 132 U/L (45-117)
[2024-07-27 23:28] LABS: ACTIVATED PTT 27.6 SECONDS (25.2-36.5)
[2024-07-28] MEDS ORDERED: dilTIAZem HCL 125 MG/25 ML - 25 ML VIAL ONE (00:08)
[2024-07-28] MEDS: dilTIAZem HCL 50 MG/10 ML - 10 ML VIAL IVPUSH ONE (00:19)
[2024-07-28 00:31] LABS: BASO % 0.7 % (0-2.0); EOS % 0.2 % (0-4.5); HEMATOCRIT 34.8 % (35.4-49); HEMOGLOBIN 11.2 GM/dL (11.7-16.9); LYMPH % 13.8 % (8-40); MCH 28.8 pg (25.7-33.7); MCHC 32.1 g/dl (32.0-35.9); MEAN CELL VOLUME 89.8 fl (80-96); MEAN PLT VOLUME 8.8 fl (7.5-11.1); MONO % 6.6 % (3.8-10.2); NEUT % 78.7 % (42.8-82.8); PLATELET COUNT 168 10^3/uL (134-434); RBC 3.87 M/mm3 (4.00-5.60); RDW 15.8 % (11.9-15.9); WHITE BLOOD COUNT 11.8 K/mm3 (4.0-10.0)
[2024-07-28 05:05] LABS: BILIRUBIN,DIRECT 2.2 mg/dL (0.0-0.2)
[2024-07-28] MEDS: CEFTRIAXONE 1 GM in DEXTROSE 5%-WATER - 50 ML IVPB SCH (06:12)
[2024-07-28 07:54] LABS: POTASSIUM 3.5 mmol/L (3.5-5.1)
[2024-07-28 07:57] LABS: ALBUMIN 3.2 g/dl (3.4-5.0); BLOOD UREA NITROGEN 13.6 mg/dL (7-18); CALCIUM 8.5 mg/dL (8.5-10.1)
[2024-07-28 08:00] LABS: CREATININE 0.6 mg/dL (0.55-1.3); PHOSPHOROUS 2.4 mg/dL (2.5-4.9)
[2024-07-28 08:02] LABS: BILIRUBIN,TOTAL 3.5 mg/dL (0.2-1); TOT PROT 7.2 g/dl (6.4-8.2)
[2024-07-28] MEDS: PANTOPRAZOLE SODIUM 40 MG VIAL IVPUSH SCH (09:34)
[2024-07-28] MEDS: PNEUMOC 20-VAL CONJ-DIP CRM/PF 0.5 ML SYRINGE IM ONE (09:38)
[2024-07-28] MEDS: FLU VACCINE (FLULAVAL) PF 45 MCG/0.5 ML SYRINGE 2024-2025 IM ONE (09:47)
[2024-07-28] MEDS: dilTIAZem HCL 30 MG TABLET PO SCH (11:35)
[2024-07-28] MEDS: diazePAM 5 MG TABLET PO ONE ×2 (11:37)
[2024-07-28] MEDS: diazePAM 5 MG TABLET PO SCH (11:44)
[2024-07-28] MEDS: methaDONE 40 MG, methaDONE 30 MG PO ONE ×2 (13:11→15:13)
[2024-07-28] MEDS: methaDONE 40 MG, methaDONE 30 MG PO SCH (13:13)
[2024-07-28] MEDS: NAPH,MB-DB/K PH,MBDB POWDER PACKET PO SCH (15:13)
[2024-07-29] MEDS: LORazepam 1 MG TABLET PO SCH (05:06)
[2024-07-29] MEDS ORDERED: methaDONE 40 MG, methaDONE 30 MG PO SCH (06:00)
[2024-07-29] MEDS: methaDONE 40 MG, methaDONE 30 MG PO SCH (06:41)
[2024-07-29 07:31] LABS: HEMOGLOBIN 11.2 GM/dL (11.7-16.9); MCH 29.5 pg (25.7-33.7); MEAN CELL VOLUME 91.9 fl (80-96); MEAN PLT VOLUME 9.2 fl (7.5-11.1); PLATELET COUNT 153 10^3/uL (134-434); RBC 3.81 M/mm3 (4.00-5.60); RDW 15.3 % (11.9-15.9); WHITE BLOOD COUNT 9.7 K/mm3 (4.0-10.0)
[2024-07-29 07:40] LABS: POTASSIUM 3.6 mmol/L (3.5-5.1)
[2024-07-29 07:45] LABS: ALBUMIN 2.8 g/dl (3.4-5.0); CALCIUM 8.1 mg/dL (8.5-10.1)
[2024-07-29 07:46] LABS: BLOOD UREA NITROGEN 20.2 mg/dL (7-18)
[2024-07-29 07:49] LABS: CREATININE 0.8 mg/dL (0.55-1.3); PHOSPHOROUS 3.8 mg/dL (2.5-4.9); TOT PROT 6.4 g/dl (6.4-8.2)
[2024-07-29] MEDS: PANTOPRAZOLE 40 MG TABLET PO SCH (10:08)
[2024-07-30] MEDS: LORazepam 1 MG TABLET PO SCH (04:39)
[2024-07-30] MEDS ORDERED: diazePAM 5 MG TABLET PO SCH (06:00)
[2024-07-30 09:13] LABS: POTASSIUM 4.2 mmol/L (3.5-5.1)
[2024-07-30 09:34] LABS: BLOOD UREA NITROGEN 16.8 mg/dL (7-18)
[2024-07-30 09:35] LABS: ALBUMIN 2.8 g/dl (3.4-5.0); CALCIUM 8.1 mg/dL (8.5-10.1)
[2024-07-30 09:38] LABS: CREATININE 0.7 mg/dL (0.55-1.3)
[2024-07-30 09:40] LABS: BILIRUBIN,TOTAL 2.2 mg/dL (0.2-1); TOT PROT 6.5 g/dl (6.4-8.2)
[2024-07-30] MEDS ORDERED: LORazepam 1 MG TABLET PO PRN (14:21)
[2024-07-30] MEDS: LORazepam 1 MG TABLET PO PRN (20:56)
[2024-07-31] MEDS ORDERED: LORazepam 0.5 MG TABLET PO SCH (05:00)
[2024-07-31] MEDS ORDERED: diazePAM 5 MG TABLET PO SCH (06:00)
[2024-07-31 09:14] LABS: POTASSIUM 4.2 mmol/L (3.5-5.1)
[2024-07-31 09:25] LABS: ALBUMIN 2.8 g/dl (3.4-5.0); BLOOD UREA NITROGEN 16.6 mg/dL (7-18)
[2024-07-31 09:28] LABS: CREATININE 0.7 mg/dL (0.55-1.3)
[2024-07-31 09:30] LABS: BILIRUBIN,TOTAL 2.2 mg/dL (0.2-1); TOT PROT 6.6 g/dl (6.4-8.2)
[2024-07-31 11:09] VITALS: RESP 20; TEMP 98.1
[2024-07-31 14:57] VITALS: BP 140/72; PULSE 67
[2024-08-01] MEDS ORDERED: LORazepam 0.5 MG TABLET PO ONE (05:00)
== END 2024-07-31 15:35 | disposition other institution (70) | DRG 309 ==
LOC: JER 21:26 → JERBED 07-28 01:38 → J4W 07-28 03:16
PROVIDERS: ADMIT Internal Medicine; ATTEND Internal Medicine
PROC: HZ2ZZZZ Detoxification Services for Substance Abuse Treatment (ICD-10-PCS; principal; 2024-07-27)
DX: I48.91 Unspecified atrial fibrillation (principal); F10.139 Alcohol abuse with withdrawal, unspecified; F11.20 Opioid dependence, uncomplicated; I10 Essential (primary) hypertension; K59.00 Constipation, unspecified; K74.60 Unspecified cirrhosis of liver; F19.10 Other psychoactive substance abuse, uncomplicated; K21.9 Gastro-esophageal reflux disease without esophagitis; J45.909 Unspecified asthma, uncomplicated; H54.40 Blindness, one eye, unspecified eye; H40.9 Unspecified glaucoma; R14.0 Abdominal distension (gaseous); J44.9 Chronic obstructive pulmonary disease, unspecified; N40.0 Benign prostatic hyperplasia without lower urinary tract symptoms; E11.9 Type 2 diabetes mellitus without complications; K70.10 Alcoholic hepatitis without ascites
CPT/HCPCS: 36415; 71046-TC-FY; 74177-TC; 80053; 80061; 80307; 81003; 82140; 82248; 82272; 82728; 82962; 83036; 83540; 83550; 83690; 83735; 84100; 84439; 84443; 84484; 85025; 85027; 85045; 85610; 85651; 85730; 86140; 86704; 86708; 86850; 86900; 86901; 87040; 87086; 87340; 87517; 87522; 90656; 90677; 93005; 93010; 93306-TC; 97116-GP; 97162-GP; 99285-25; G0008; G0009; Q9967

== ENCOUNTER 2024-07-31 16:59 | Inpatient (IN) | payer OTHER ==
[2024-07-31 18:01] VITALS: BMI 20.8
[2024-07-31] MEDS ORDERED: IBUPROFEN 600 MG TABLET (FP) PO PRN (21:01)
[2024-07-31] MEDS ORDERED: NALOXONE (NYS OPIOID OVERDOSE PROGRAM) 4 MG/0.1 ML SPRAY NS PRN (21:01)
[2024-07-31] MEDS ORDERED: NALOXONE (NARCAN) HCL 4 MG/0.1 ML SPRAY NS PRN (21:01)
[2024-07-31] MEDS ORDERED: LOPERAMIDE HCL 2 MG CAPSULE PO PRN (21:01)
[2024-07-31] MEDS ORDERED: MAGNESIUM HYDROX 2400MG/30ML ORAL SUSPENSION 30 ML CUP PO PRN (21:01)
[2024-07-31] MEDS ORDERED: IBUPROFEN 400 MG TABLET (FP) PO PRN (21:01)
[2024-07-31] MEDS ORDERED: BENZOCAINE/MENTHOL (CHLORASEPTIC ) LOZENGE MM PRN (21:01)
[2024-07-31] MEDS ORDERED: guaiFENesin 600 MG TABLET.ER (FP) PO PRN (21:01)
[2024-07-31] MEDS ORDERED: POLYETHYLENE GLYCOL (HEALTHYLAX) 3350 17 GM PACKET PO PRN (21:01)
[2024-07-31] MEDS ORDERED: BENZONATATE 200 MG CAPSULE PO PRN (21:01)
[2024-07-31] MEDS: THIAMINE 100 MG TABLET PO SCH (22:47)
[2024-07-31] MEDS: MELATONIN 5 MG TABLETS PO SCH (22:47)
[2024-08-01] MEDS ORDERED: ALBUTEROL SO4 HFA INHALER IH PRN (08:51)
[2024-08-01] MEDS: methaDONE 40 MG, methaDONE 30 MG PO SCH (10:24)
[2024-08-01] MEDS: PANTOPRAZOLE 40 MG TABLET PO SCH (10:25)
[2024-08-01] MEDS: methaDONE HCL 40 MG DISPERSABLE TABLET PO SCH (10:25)
[2024-08-01] MEDS: PRENATAL VITAMINS W/ FOLIC ACID TABLET (FP) PO SCH (10:26)
[2024-08-01] MEDS: FERROUS SO4 325 MG TABLET (FP) PO SCH (10:26)
[2024-08-01] MEDS: ASPIRIN 81 MG CHEWABLE TABLETS PO SCH (10:26)
[2024-08-01] MEDS: TAMSULOSIN HCL 0.4 MG CAP PO SCH (10:27)
[2024-08-01 14:43] LABS: PH,URINE 6.5 (5.0-8.0); URINE APPEARANCE CLEAR; URINE BILIRUBIN NEGATIVE (NEGATIVE); URINE COLOR DK YELLOW; URINE GLUCOSE (UA) NEGATIVE (NEGATIVE); URINE KETONE NEGATIVE (NEGATIVE); URINE LEUK ESTERASE NEGATIVE (NEGATIVE); URINE NITRITE NEGATIVE (NEGATIVE); URINE PROTEIN NEGATIVE (NEGATIVE)
[2024-08-01 17:53] LABS: CHLORIDE 104 mmol/L (98-107); HEMATOCRIT 35.6 % (35.4-49); HEMOGLOBIN 11.6 GM/dL (11.7-16.9); MCH 29.7 pg (25.7-33.7); MCHC 32.5 g/dl (32.0-35.9); MEAN CELL VOLUME 91.2 fl (80-96); MEAN PLT VOLUME 9.3 fl (7.5-11.1); PLATELET COUNT 194 10^3/uL (134-434); POTASSIUM 3.9 mmol/L (3.5-5.1); RBC 3.91 M/mm3 (4.00-5.60); RDW 16.5 % (11.9-15.9); SODIUM 137 mmol/L (136-145); WHITE BLOOD COUNT 9.2 K/mm3 (4.0-10.0)
[2024-08-01 18:01] LABS: ALBUMIN 3.1 g/dl (3.4-5.0); BLOOD UREA NITROGEN 14.2 mg/dL (7-18); SGPT/ALT 27 U/L (13-61)
[2024-08-01 18:02] LABS: BILIRUBIN,TOTAL 1.7 mg/dL (0.2-1); TOT PROT 7.1 g/dl (6.4-8.2)
[2024-08-01 18:03] LABS: CALCIUM 8.7 mg/dL (8.5-10.1); GLUCOSE,RANDOM 110 mg/dL (74-106); SGOT/AST 38 U/L (15-37)
[2024-08-01 18:04] LABS: ALK PHOS 114 U/L (45-117); ANION GAP 5 mmol/L (4-13); CO2 28 mmol/L (21-32); CREATININE 0.6 mg/dL (0.55-1.3)
[2024-08-03] MEDS: ACETAMINOPHEN 325 MG TABLET (FP) PO PRN (14:20)
[2024-08-03] MEDS: MAG HYDROX/AL HYDROX/SIMETH 30 ML UNIT-DOSE CUP PO PRN (23:22)
[2024-08-04] MEDS: LACTULOSE 20 GM/30 ML UDC (FOR ORAL USE ONLY) PO SCH (15:50)
[2024-08-04] MEDS: GABAPENTIN 100 MG CAPSULE PO SCH (21:09)
[2024-08-07 09:15] VITALS: BP 144/80; PULSE 85; RESP 17; TEMP 97.3
== END 2024-08-07 14:27 | disposition home or self-care (01) | DRG 895 ==
LOC: YASAS 16:59 → Y3E 21:17
PROVIDERS: ADMIT Allergy & Immunology; ATTEND Psychiatry & Neurology Pain Medicine
PROC: HZ42ZZZ Group Counseling for Substance Abuse Treatment, Cognitive-Behavioral (ICD-10-PCS; principal; 2024-07-31)
DX: F10.20 Alcohol dependence, uncomplicated (principal); F11.20 Opioid dependence, uncomplicated; F33.2 Major depressive disorder, recurrent severe without psychotic features; F17.210 Nicotine dependence, cigarettes, uncomplicated; E11.9 Type 2 diabetes mellitus without complications; I10 Essential (primary) hypertension; J43.9 Emphysema, unspecified; K70.10 Alcoholic hepatitis without ascites; M15.9 Polyosteoarthritis, unspecified; N40.0 Benign prostatic hyperplasia without lower urinary tract symptoms; Z86.11 Personal history of tuberculosis; Z99.89 Dependence on other enabling machines and devices
CPT/HCPCS: 36415; 80053; 80305; 80307; 81003; 82140; 85027; 86780